=== PATIENT | male | born 1955 | race Caucasian/White ===

== ENCOUNTER 2022-07-19 16:37 | Emergency (ER) | payer OTHER, MEDICARE, SELFPAY ==
[2022-07-19 16:41] VITALS: BP 193/122; PULSE 98; RESP 20; TEMP 36.3; O2SAT 97; BMI 32.5
--- NOTE | 2022-07-19 17:07 | ED_ITS ---
HPI - General Adult General Chief complaint: Extremity Pain/Injury, Upper Stated complaint: Pain in left shoulder & back - can't put arm down Time Seen by Provider: 07/19/22 16:50 History of Present Illness HPI narrative: This 67-year-old male comes in with pain in his neck radiating down into his left shoulder and arm. This began yesterday. He does not report any particular injury event but states that he was lifting some items yesterday. He prefers to hold his arm up behind his head as this gives some relief to his symptoms. Putting his arm down at his side makes things feel worse. He does reports some tingling symptoms radiating out into his hand. He has a prior history of 2 back surgeries. One cervical and 1 lumbar for radiculopathies. Related Data Home Medications Medication Instructions Recorded Confirmed aspirin 81 mg tablet,delayed 81 mg PO DAILY 07/19/22 07/19/22 release (Adult Aspirin Regimen) famotidine 40 mg tablet mg 07/19/22 metformin 1,000 mg tablet mg 07/19/22 metoprolol succinate 50 mg mg PO 07/19/22 tablet,extended release 24 hr Previous Rx's Medication Instructions Recorded cyclobenzaprine 10 mg tablet 10 mg PO TID #15 tabs 07/19/22 hydrocodone 5 mg-acetaminophen 325 1 tab PO Q4-6H PRN pain #20 tabs 07/19/22 mg tablet ketorolac 10 mg tablet 10 mg PO Q8H 5 days #15 tabs 07/19/22 methylprednisolone 4 mg tablets in See Rx Instructions PO .COMPLEX 07/19/22 a dose pack (Medrol ([place])) #21 ea Allergies Allergy/AdvReac Type Severity Reaction Status Date / Time No Known Drug Allergies Allergy Verified 07/19/22 16:46 Review of Systems Status of ROS: Reports: 10 or more systems reviewed and unremarkable except as noted in History and below Narrative: Constitutional: No fevers, no weight gain or loss. Eyes: No discharge. No vision changes. HENT: No congestion, no sore throat, no ear pain. Cardiovascular: No chest pain, no palpitations. Respiratory: No shortness of breath, no wheezes, no cough. Gastrointestinal: No abdominal pain, no vomiting, no diarrhea. Genitourinary: No dysuria, no hematuria. Musculoskeletal: Normal range of motion. Neck and shoulder pain as described above. Skin: No rashes, no pruritis. Neurological: No dizziness, weakness, sensory change, speech change. Endo/Heme/Allergies: No bruising or bleeding. No polydipsia. Pysch: no suicidality, no anxiety, no insomnia. All other systems reviewed and are negative. Exam Narrative: Exam Narrative: Constitutional: Well-developed, well-nourished, no acute distress. HEENT: Normocephalic, atraumatic. Neck: Normal range of motion. Nontender. Supple. Heart: Regular. No murmurs. Normal rate. Intact distal pulses. Lungs: Clear to auscultation. No chest discomfort. No wheezes, rhonchi, or rales. Abdomen: Normal bowel sounds. Nontender. No rebound tenderness. Genitalia: Deferred. Back: No midline tenderness. Normal range of motion. Extremities: Normal range of motion. No injury. Skin: Intact. No rash. Warm. No erythema or pallor. Neurologic: Alert and oriented. He is holding his left arm up with his hand behind his head as this give some relief. He reports tingling sensation extending out into his left hand. Psychiatric: No suicidality. No anxiety or depression. No insomnia. Nursing notes and vitals signs are reviewed. Const: Vital Signs, click to edit/add: Vital Signs - 24 hr 07/19/22 16:41 Temperature 97.4 F L Pulse Rate [Pulse Oximeter] 98 Respiratory Rate 20 Blood Pressure [Ri ght Upper Arm] 193/122 H Pulse Oximetry 97 Oxygen Delivery Me thod Room Air Course Vital Signs Vital signs: Initial Vital Signs Temperature 97.4 F L 07/19/22 16:41 Temperature Source Temporal Artery Scan 07/19/22 16:41 Pulse Rate 98 07/19/22 16:41 Respiratory Rate 20 07/19/22 16:41 Blood Pressure 193/122 H 07/19/22 16:41 Blood Pressure Mean 145 07/19/22 16:41 Blood Pressure Position Supine 07/19/22 16:41 Pulse Oximetry 97 07/19/22 16:41 Oxygen Delivery Method 07/19/22 16:41 Vital Signs Temperature 97.4 F L 07/19/22 16:41 Pulse Rate 98 07/19/22 16:41 Respiratory Rate 20 07/19/22 16:41 Blood Pressure 193/122 H 07/19/22 16:41 Pulse Oximetry 97 07/19/22 16:41 Oxygen Delivery Method 07/19/22 16:41 Temperature 97.4 F L 07/19/22 16:41 Pulse Rate 98 07/19/22 16:41 Respiratory Rate 20 07/19/22 16:41 Blood Pressure 193/122 H 07/19/22 16:41 Pulse Oximetry 97 07/19/22 16:41 Oxygen Delivery Method 07/19/22 16:41 Medical Decision Making MDM Narrative Medical decision making narrative: This patient comes in with symptoms as described above. He does not report any particular injury event. He gets relief with holding his left arm up behind his head suggesting a C6 radiculopathy. I did not attempt to bring him through a Spurling's test maneuver. He does have symptoms radiating out into his left arm and hand. He has 2 prior surgeries related to radiculopathies. I indicated imaging today is not necessary as there was no significant mechanism of injury. He may need an MRI if not improving. He did receive an intramuscular injection of morphine 10 mg. I did provide prescriptions for Medrol Dosepak, Flexeril, Toradol, and [place]. He does have diabetes and takes metformin. He understands that the steroid will bring a temporary increase in his blood glucose level. Discharge Plan Discharge Clinical Impression: Cervical radiculopathy at C6 Patient Disposition: Home, Self-Care Condition: Stable Additional Instructions: Take medication as needed and directed. Follow up with primary MD or spine clinic. For appointment with spine clinic here call [phone]. Return if worsening symptoms happen. Prescriptions: New cyclobenzaprine 10 mg tablet 10 mg PO TID Qty: 15 0RF hydrocodone-acetaminophen 5-325 mg tablet 1 tab PO Q4-6H PRN (Reason: pain) Qty: 20 0RF ketorolac 10 mg tablet 10 mg PO Q8H 5 Days Qty: 15 0RF methylprednisolone [Medrol ([place])] 4 mg tablets,dose pack See Rx Instructions .ROUTE .COMPLEX Qty: 21 0RF Rx Instructions: orally per package directions No Action metoprolol succinate 50 mg tablet extended release 24 hr PO Label Comments: TAKE ONE TABLET BY MOUTH ONE TIME DAILY famotidine 40 mg tablet Label Comments: TAKE ONE TABLET BY MOUTH ONE TIME DAILY AT BEDTIME metformin 1,000 mg tablet Label Comments: TAKE ONE TABLET BY MOUTH TWICE DAILY WITH MEALS aspirin [Adult Aspirin Regimen] 81 mg tablet,delayed release (DR/EC) 81 mg PO DAILY Follow Up/Referrals: Silverio Tay MD [Primary Care Provider] - Stand Alone Forms: [email or web address] Info Instructions
[2022-07-19] MEDS: MORPHINE 10 MG/ML inj IM (17:16)
== END 2022-07-19 17:31 | disposition home or self-care (01) ==
PROVIDERS: Emergency Provider Emergency Medicine Emergency Medical Services; PCP Family Medicine
DX: M54.12 Radiculopathy, cervical region (principal)
CPT/HCPCS: 96372; 99284; J2270

== ENCOUNTER 2022-07-21 11:23 | Emergency (ER) | payer OTHER, SELFPAY ==
[2022-07-21 11:45] VITALS: BP 152/91; PULSE 85; RESP 18; TEMP 36.3; O2SAT 97; BMI 33.2
--- NOTE | 2022-07-21 13:40 | ED_ITS ---
HPI - General Adult General Chief complaint: Back Injury/Pain Stated complaint: Upper left back pain Time Seen by Provider: 07/21/22 13:15 History of Present Illness HPI narrative: This 67-year-old male comes in with neck pain extending into his left shoulder and arm down to his hand. This pain began about 3 days ago. He does not have any particular injury event. He was seen by me a couple days ago and diagnosed with a C6 radiculopathy. He prefers to hold his arm up behind his head as this brings some relief to his symptoms. He is taking a steroid and some pain medicine and muscle relaxants but states that he has difficulty sleeping despite taking these medicines. He also feels that his left arm is getting weaker. He does have a follow-up appointment with a sports medicine doctor tomorrow regarding his hip. He plans to include these new symptoms in that visit. Related Data Home Medications Medication Instructions Recorded Confirmed aspirin 81 mg tablet,delayed 81 mg PO DAILY 07/19/22 07/21/22 release (Adult Aspirin Regimen) famotidine 40 mg tablet 40 mg PO HS 07/19/22 07/21/22 metformin 1,000 mg tablet 1,000 mg PO BID 07/19/22 07/21/22 metoprolol succinate 50 mg 50 mg PO DAILY 07/19/22 07/21/22 tablet,extended release 24 hr nifedipine 60 mg tablet,extended 60 mg PO DAILY 07/21/22 07/21/22 release Previous Rx's Medication Instructions Recorded cyclobenzaprine 10 mg tablet 10 mg PO TID #15 tabs 07/19/22 hydrocodone 5 mg-acetaminophen 325 1 tab PO Q4-6H PRN pain #20 tabs 07/19/22 mg tablet ketorolac 10 mg tablet 10 mg PO Q8H 5 days #15 tabs 07/19/22 methylprednisolone 4 mg tablets in See Rx Instructions PO .COMPLEX 07/19/22 a dose pack (Medrol ([place])) #21 ea gabapentin 100 mg capsule 100 mg PO TID #30 caps 07/21/22 Allergies Allergy/AdvReac Type Severity Reaction Status Date / Time No Known Drug Allergies Allergy Verified 07/21/22 11:51 Review of Systems Status of ROS: Reports: 10 or more systems reviewed and unremarkable except as noted in History and below Narrative: Constitutional: No fevers, no weight gain or loss. Eyes: No discharge. No vision changes. HENT: No congestion, no sore throat, no ear pain. Cardiovascular: No chest pain, no palpitations. Respiratory: No shortness of breath, no wheezes, no cough. Gastrointestinal: No abdominal pain, no vomiting, no diarrhea. Genitourinary: No dysuria, no hematuria. Musculoskeletal: Normal range of motion. Skin: No rashes, no pruritis. Neurological: No dizziness, speech change. Pain in the left neck radiating down the left arm to the hand. Endo/Heme/Allergies: No bruising or bleeding. No polydipsia. Pysch: no suicidality, no anxiety, no insomnia. All other systems reviewed and are negative. Exam Narrative: Exam Narrative: Constitutional: Well-developed, well-nourished, no acute distress. HEENT: Normocephalic, atraumatic. Neck: Normal range of motion. Nontender. Supple. Heart: Intact distal pulses. Lungs: No chest discomfort. No wheezes, rhonchi, or rales. Abdomen: Nontender. Back: Normal range of motion. No midline tenderness when palpating along the spine. Pain is relieved with holding his left arm up behind his head suggesting a C6 radiculopathy. Extremities: Normal range of motion. No injury. Skin: Intact. No rash. Warm. No erythema or pallor. Neurologic: No altered sensation. No weakness. Alert and oriented. Psychiatric: No suicidality. No anxiety or depression. No insomnia. Nursing notes and vitals signs are reviewed. Const: Vital Signs, click to edit/add: Vital Signs - 24 hr 07/21/22 11:45 Temperature 97.3 F L Pulse Rate [Right Pulse Oximeter] 85 Respiratory Rate 18 Blood Pressure [Ri ght Upper Arm] 152/91 H Pulse Oximetry 97 Oxygen Delivery Me thod Room Air Course Vital Signs Vital signs: Initial Vital Signs Temperature 97.3 F L 07/21/22 11:45 Temperature Source Temporal Artery Scan 07/21/22 11:45 Pulse Rate 85 07/21/22 11:45 Respiratory Rate 18 07/21/22 11:45 Blood Pressure 152/91 H 07/21/22 11:45 Blood Pressure Mean 111 07/21/22 11:45 Blood Pressure Position Sitting 07/21/22 11:45 Pulse Oximetry 97 07/21/22 11:45 Oxygen Delivery Method 07/21/22 11:45 Vital Signs Temperature 97.3 F L 07/21/22 11:45 Pulse Rate 85 07/21/22 11:45 Respiratory Rate 18 07/21/22 11:45 Blood Pressure 152/91 H 07/21/22 11:45 Pulse Oximetry 97 07/21/22 11:45 Oxygen Delivery Method 07/21/22 11:45 Temperature 97.3 F L 07/21/22 11:45 Pulse Rate 85 07/21/22 11:45 Respiratory Rate 18 07/21/22 11:45 Blood Pressure 152/91 H 07/21/22 11:45 Pulse Oximetry 97 07/21/22 11:45 Oxygen Delivery Method 07/21/22 11:45 Medical Decision Making MDM Narrative Medical decision making narrative: This patient returns because his symptoms are not adequately managed such that he has not been able to sleep well over these past several days. He does have a follow-up appointment with his sports medicine doctor tomorrow. I did discuss the role of an MRI. The patient plans to go through that process with his primary physician if needed. Today he received an intramuscular injection of Dilaudid 1 mg. He understands that this is not a medicine will repeat. He is taking pain medicines and muscle relaxants. I did add a prescription for gabapentin. Discharge Plan Discharge Clinical Impression: Cervical radiculopathy at C6 Patient Disposition: Home, Self-Care Condition: Unchanged Additional Instructions: Take medication as needed and indicated. Follow up with MD tomorrow as scheduled. Return if worsening symptoms happen. Prescriptions: New gabapentin 100 mg capsule 100 mg PO TID Qty: 30 2RF No Action nifedipine 60 mg tablet extended release 60 mg PO DAILY Label Comments: TAKE ONE TABLET BY MOUTH ONE TIME DAILY BEFORE MEALS metoprolol succinate 50 mg tablet extended release 24 hr 50 mg PO DAILY Label Comments: TAKE ONE TABLET BY MOUTH ONE TIME DAILY famotidine 40 mg tablet 40 mg PO HS Label Comments: TAKE ONE TABLET BY MOUTH ONE TIME DAILY AT BEDTIME metformin 1,000 mg tablet 1,000 mg PO BID Label Comments: TAKE ONE TABLET BY MOUTH TWICE DAILY WITH MEALS aspirin [Adult Aspirin Regimen] 81 mg tablet,delayed release (DR/EC) 81 mg PO DAILY cyclobenzaprine 10 mg tablet 10 mg PO TID Qty: 15 0RF hydrocodone-acetaminophen 5-325 mg tablet 1 tab PO Q4-6H PRN (Reason: pain) Qty: 20 0RF ketorolac 10 mg tablet 10 mg PO Q8H 5 Days Qty: 15 0RF methylprednisolone [Medrol ([place])] 4 mg tablets,dose pack See Rx Instructions .ROUTE .COMPLEX Qty: 21 0RF Rx Instructions: orally per package directions Follow Up/Referrals: Silverio Tay MD [Primary Care Provider] - Stand Alone [facility]: [facility] Info Inst[facility]
[2022-07-21 13:49] VITALS: BP 161/102; PULSE 79; RESP 16; TEMP 36.2; O2SAT 95
[2022-07-21] MEDS: HYDROmorphone 0.5 mg/0.5 ml inj 1 MG IM (13:52)
== END 2022-07-21 14:08 | disposition home or self-care (01) ==
PROVIDERS: Emergency Provider Emergency Medicine Emergency Medical Services
DX: M54.12 Radiculopathy, cervical region (principal)
CPT/HCPCS: 96372; 99284; J1170

== ENCOUNTER 2022-07-23 14:10 | Outpatient (CLI) | payer OTHER, SELFPAY ==
--- NOTE | 2022-07-23 14:30 | CRLHL7_ITS ---
For Patients: As a result of the Cures Act, medical imaging exams and procedure reports are released immediately into your electronic medical record. You may view this report before your referring provider. If you have questions, please contact your health care provider. Indication: Left arm radiculopathy. Technique: MRI of the cervical spine was performed without the use of intravenous contrast. Comparison: MRI of the cervical spine 04/25/2019. Findings: The vertebral body heights appear maintained without evidence of fracture. No discrete T1 hypointense marrow infiltrating process. Mild multilevel disc desiccation, with mild height loss at C5-6. No abnormal cord signal. C2-3: No spinal canal narrowing. Mild left neural foraminal narrowing secondary to uncovertebral joint and facet hypertrophy. Stable. C3-4: Shallow disc bulge with minimal spinal canal narrowing. Mild neural foraminal narrowing secondary to uncovertebral and facet hypertrophy. Stable. C4-5: Shallow disc bulge with minimal spinal canal narrowing. Mild to moderate neural foraminal narrowing secondary to uncovertebral joint and facet hypertrophy. Stable. C5-6: Disc osteophyte complex with mild spinal canal narrowing. Moderate neural foraminal narrowing secondary to uncovertebral joint and facet hypertrophy. Stable. C6-7: Trace anterolisthesis. Minimal disc bulge without spinal canal narrowing. Mild neural foraminal narrowing secondary to uncovertebral joint and facet hypertrophy. Stable. C7-T1: There is a stable right paracentral subarticular disc protrusion which results in moderate to severe right neural foraminal stenosis. Mild to moderate left neural foraminal narrowing. Potential impingement of the exiting right C8 nerve root. Stable Impression: 1. Overall stable degenerative burden since prior 04/25/2019. 2. At C7-T1, right paracentral subarticular disc protrusion with moderate to severe right neural foraminal stenosis potentially impinging the exiting right C8 nerve root. 3. Stable mild to moderate spondylosis at the remaining cervical levels. Dictated by Alexander Wolfe MD @ 07/24/2022 10:18:10 AM (Electronically Signed)
== END 2022-07-23 14:11 | disposition home or self-care (01) ==
LOC: MRI 14:12
PROVIDERS: PCP Student in an Organized Health Care Education/Training Program; Visit Provider Family Medicine
DX: M54.10 Radiculopathy, site unspecified (principal); M50.23 Other cervical disc displacement, cervicothoracic region; M47.892 Other spondylosis, cervical region; M79.2 Neuralgia and neuritis, unspecified
CPT/HCPCS: 72141